=== PATIENT | male | born 1990 | race Caucasian/White ===

== ENCOUNTER 2024-05-25 09:05 | Outpatient (CLI) | payer BC | END 2024-05-25 09:22 | disposition home or self-care (01) | LOC: RAD 09:05 | PROVIDERS: ATTEND Family Medicine | DX: M54.2 Cervicalgia (principal); M25.511 Pain in right shoulder ==

== ENCOUNTER 2024-05-28 07:25 | Outpatient (CLI) | payer OTHER | END 2024-05-28 07:35 | disposition home or self-care (01) | LOC: MRI 07:25 | PROVIDERS: ATTEND Family Medicine | DX: M25.511 Pain in right shoulder (principal) | CPT/HCPCS: 73221 ==